=== PATIENT | male | born 1965 ===

== ENCOUNTER 2017-05-01 01:15 | Observation (INO) | payer MEDICAID, OTHER ==
--- NOTE | 2017-05-01 01:56 | C.PDOC ---
History Of Present Illness 51 year old male presents to the ED for evaluation of intermittent exertional chest pain and headache over the past week. Patient reports that pain has been occurring daily and lasts approximately an hour. Pain is exacerbated by walking and going up steps and is relieved by rest and water. Not exacerbated by deep breath. Patient endorses cough. Denies shortness of breath. Patient is noncompliant with medications for DM and HTN for the past 18 months due to homelessness. Chief Complaint (Nursing): Chest Pain History Per: Patient History/Exam Limitations: no limitations Onset/Duration Of Symptoms: Days, Intermittent Episodes Exacerbating Factors: Exertion Alleviating Factors: Rest, Other (water) Past Medical History Reviewed: Historical Data, Nursing Documentation, Vital Signs Vital Signs: Last Vital Signs Temp 97.5 F L 05/01/17 01:20 Pulse 78 05/01/17 03:49 Resp 18 05/01/17 03:49 BP 195/116 H 05/01/17 03:49 Pulse Ox 97 05/01/17 04:38 - Medical History PMH: Diabetes, HTN, Hypercholesterolemia Family History: States: Unknown Family Hx - Social History Hx Tobacco Use: Yes Hx Alcohol Use: Yes Hx Substance Use: No - Immunization History Hx Tetanus Toxoid Vaccination: No Hx Influenza Vaccination: No Hx Pneumococcal Vaccination: No Review Of Systems Except As Marked, All Systems Reviewed And Found Negative. Constitutional: Negative for: Fever, Chills ENT: Negative for: Ear Pain, Throat Pain Cardiovascular: Positive for: Chest Pain Respiratory: Positive for: Cough. Negative for: Shortness of Breath Gastrointestinal: Negative for: Nausea, Vomiting, Abdominal Pain, Diarrhea Skin: Negative for: Rash Neurological: Positive for: Headache Psych: Negative for: Withdrawal Physical Exam - Physical Exam Appears: Well, No Acute Distress Skin: Normal Color, Warm, Dry Head: Atraumatic, Normacephalic Eye(s): bilateral: Normal Inspection, PERRL, EOMI Oral Mucosa: Moist Tongue: Normal Appearing Lips: Normal Appearing Throat: Normal Neck: Normal, Normal ROM, Supple Cardiovascular: Rhythm Regular, Murmur (2/6 systolic murmur) Respiratory: Normal Breath Sounds Gastrointestinal/Abdominal: Soft, No Tenderness Back: Normal Inspection Extremity: Normal ROM, No Deformity Neurological/Psych: Oriented x3, Normal Speech ED Course And Treatment - Laboratory Results Result Diagrams: 05/01/17 02:45 05/01/17 02:45 ECG: Interpreted By Me ECG Rhythm: Sinus Rhythm ECG Interpretation: No Acute Changes Interpretation Of ECG: NSR,LVH otherwise neg O2 Sat by Pulse Oximetry: 97 Medical Decision Making Medical Decision Making: Pt with multiple risk factors including HTN and smoking now with exertional CP, relived by rest. Patient reevaluated. He is pain free at this time. Patient still with elevated BP at 202/117. Will admit for observation.Will admit for observation. Disposition - Disposition Disposition: HOSPITALIZED Disposition Time: 05:26 Condition: FAIR - Clinical Impression Clinical Impression: Chest pain - Scribe Statement The provider has reviewed the documentation as recorded by the Scribe The provider has reviewed the documentation as recorded by the Scribe (Prabhakar Cerna) Provider Attestation: All medical record entries made by the Scribe were at my direction and personally dictated by me. I have reviewed the chart and agree that the record accurately reflects my personal performance of the history, physical exam, medical decision making, and the department course for this patient. I have also personally directed, reviewed, and agree with the discharge instructions and disposition.
[2017-05-01 02:51] LABS: BASO # 0.1 K/uL (0.0-0.2); BASO % 0.8 % (0.0-2.0); EOS # 0.1 K/uL (0.0-0.7); EOS % 1.2 % (0.0-4.0); HEMOGLOBIN 15.6 g/dL (12.0-18.0); LYMPH # 1.3 K/uL (1.0-4.3); LYMPH % 16.5 % (20.0-40.0); MEAN CELL VOLUME 93.1 fL (80.0-94.0); MEAN CORPUSCULAR HEMOGLOBIN 31.6 pg (27.0-31.0); MEAN PLATELET VOLUME 8.5 fL (7.2-11.7); MONO # 0.7 K/uL (0.0-0.8); MONO % 8.8 % (0.0-10.0); NEUT # 5.7 K/uL (1.8-7.0); NEUT % 72.7 % (50.0-75.0); RBC 4.94 Mil/uL (4.40-5.90); RED CELL DISTRIBUTION WIDTH 13.8 % (11.5-14.5); WHITE BLOOD COUNT 7.8 K/uL (4.8-10.8)
[2017-05-01 02:53] LABS: INR 1.1; PROTHROMBIN TIME 11.8 SECONDS (9.7-12.2)
[2017-05-01 03:14] LABS: CALCIUM 8.9 mg/dl (8.6-10.4); GFR AFRICAN-AMERICAN > 60; GFR NON-AFRICAN AMERICAN > 60
[2017-05-01 03:19] LABS: ALB/GLOB RATIO 1.1 (1.0-2.1); ALBUMIN 4.7 g/dL (3.5-5.0); ALT/SGPT 16 U/L (21-72); AST/SGOT 55 U/L (17-59); BLOOD UREA NITROGEN 16 mg/dL (9-20)
[2017-05-01] MEDS ORDERED: Aspirin 325 mg EC Tablets PO STA (04:35)
[2017-05-01] MEDS ORDERED: Nitroglycerin 2% Ointment Foilpak UD TOP STA (04:38)
[2017-05-01] MEDS ORDERED: Aspirin 325 mg EC Tablets PO ONE (04:40)
[2017-05-01] MEDS ORDERED: Nitroglycerin 2% Ointment Foilpak UD TOP ONE (04:41)
--- NOTE | 2017-05-01 05:32 | CP.PCM.HP ---
<Yash Cross P - Last Filed: 05/01/17 06:31> Meds Allergies/Adverse Reactions: Allergies Allergy/AdvReac Type Severity Reaction Status Date / Time No Known Allergies Allergy Verified 05/01/17 01:22 Results - Vital Signs Recent Vital Signs: Last Vital Signs Temp 97.5 F L 05/01/17 01:20 Pulse 78 05/01/17 03:49 Resp 18 05/01/17 03:49 BP 195/116 H 05/01/17 03:49 Pulse Ox 97 05/01/17 05:26 - Labs Result Diagrams: 05/01/17 02:45 05/01/17 02:45 Labs: Laboratory Results - last 24 hr 05/01/17 05/01/17 05/01/17 02:45 02:45 02:45 WBC 7.8 RBC 4.94 Hgb 15.6 Hct 46.0 MCV 93.1 MCH 31.6 H MCHC 34.0 RDW 13.8 Plt Count 179 MPV 8.5 Neut % (Auto) 72.7 Lymph % (Auto) 16.5 L Moca % (Auto) 8.8 Eos % (Auto) 1.2 Baso % (Auto) 0.8 Neut # (Auto) 5.7 Lymph # (Auto) 1.3 Moca # (Auto) 0.7 Eos # (Auto) 0.1 Baso # (Auto) 0.1 PT 11.8 INR 1.1 Sodium 137 Potassium 4.4 Chloride 101 Carbon Dioxide 21 L Anion Gap 20 BUN 16 Creatinine 0.8 Est GFR ( Amer) > 60 Est GFR (Non-Af Amer) > 60 Random Glucose 98 Calcium 8.9 Total Bilirubin 1.8 H AST 55 ALT 16 L D Alkaline Phosphatase 61 Troponin I 0.0490 Total Protein 8.8 H Albumin 4.7 Globulin 4.1 H Albumin/Globulin Ratio 1.1 Alcohol, Quantitative 25 H Attending/Attestation - Attestation I have personally seen and examined this patient.: Yes I have fully participated in the care of the patient.: Yes I have reviewed all pertinent clinical information: Yes Notes (Text): Assessment * SOB CP on exertion, LVH on EKG, HTN noticed in ER with headache, systolic murmur radiating to carotid, DD of the presentation is either lvh is caused by chronic uncontrolled htn vs aortic disease, with bp being episodic, * Head ache could be exacerbating bp vs vice versa * Non compliance with meds for dm, htn * tobacco abuse, counselled Plan * Started on ACEI and betablocker, sent uds, * Echo, may need eval of coronaries inpatient vs out patient, cardio consult * Control of headache, zofran, fiorecet, avoid NSAIDS while starting new ACEI * Low dose asa * Enzymes, hgba1c * If bp doesn't improve significantly trial of diuretics * See orders for detail. <Tianna Marcelino - Last Filed: 05/01/17 07:03> History of Present Illness - History of Present Illness History of Present Illness: HPI: Patient is a 51 year old [place]kin[place] male with a past medical history of HTN, DM, and PTSD, who presents to the ED with complains of chest pain. Patient reports the chest pain started around 11:30pm while he was walking around [facility]. He describes the chest pain as a pressure, squeezing sensation, located parasternally and right side of chest. Patient states that for the last few weeks, he intermittently has chest pain while walking. The pain resolves after about a minute of walking. He also states that while he has the chest pain , he also feels as though its hard to breath (lasting for at most, 1 minute). He states his symptoms, especially his difficulty breathing, worsen when walking up hill. Patient admits to drinking 24oz of beer while he was walking and around the time he had chest pain. Patient currently complains of a headache , which he attributes to his high blood pressure, and a productive cough that he has had for 2-3 weeks. Patient currently denies fever, chills, weakness, vision changes, sore throat, dizziness, chest pain, palpitations, shortness of breath, abdominal pain, n/v, d/c, leg pain/swelling. PMD: none PMHx: HTN, DM, PTSD SurgHx: denies FamHx: Mother- ND, aneurysm; Father- stroke; Brother- aortic dissection SocHx: 1/2ppd x35+ years; drinks 24oz beer once a month; denies drug use; homeless for approximatley 1 year; unemployed. Allergies: NKDA Medications: none (previously took Lisinopril, statin, metformin, aspirin, and HCTZ; has not taken medications for 18 months] Present on Admission - Present on Admission Any Indicators Present on Admission: No Review of Systems - Constitutional Constitutional: Headache. absent: Chills, Fever, Weakness - EENT Eyes: absent: Change in Vision Ears: absent: Dizziness - Cardiovascular Cardiovascular: Chest Pain, Chest Pain with Activity, Dyspnea, Dyspnea on Exertion. absent: Chest Pain at Rest, Leg Edema, Lightheadedness, Palpitations , Radiating Pain, Rapid Heart Rate - Respiratory Respiratory: Cough, Dyspnea, Dyspnea on Exertion, Change in Mucous Color (yellow ) - Gastrointestinal Gastrointestinal: absent: Abdominal Pain, Constipation, Diarrhea, Hematemesis, Hematochezia, Nausea, Vomiting - Genitourinary Genitourinary: absent: Dysuria, Hematuria, Urinary Frequency - Integumentary Integumentary: absent: Rash - Neurological Neurological: Headaches. absent: Dizziness, Frequent Falls, Weakness - Psychiatric Psychiatric: Anxiety, Depression - Endocrine Endocrine: absent: Palpitations Past Patient History - Infectious Disease Hx of Infectious Diseases: None - Past Social History Smoking Status: Light Smoker < 10 Cigarettes Daily - CARDIAC Hx Hypercholesterolemia: Yes Hx Hypertension: Yes - ENDOCRINE/METABOLIC Hx Diabetes Mellitus Type 2: Yes - PSYCHIATRIC Hx Substance Use: No - SURGICAL HISTORY Hx Surgeries: No - ANESTHESIA Hx Anesthesia: No Physical Exam - Constitutional Additional comments: Appears anxious - Head Exam Head Exam: ATRAUMATIC, NORMAL INSPECTION - Eye Exam Eye Exam: EOMI, Normal appearance, PERRL - ENT Exam ENT Exam: Mucous Membranes Moist - Respiratory Exam Respiratory Exam: Clear to Auscultation Bilateral, NORMAL BREATHING PATTERN. absent: Rales, Rhonchi, Wheezes, Respiratory Distress - Cardiovascular Exam Cardiovascular Exam: +S1, +S2, Systolic Murmur - GI/Abdominal Exam GI & Abdominal Exam: Normal Bowel Sounds, Soft. absent: Distended, Firm, Tenderness - Extremities Exam Extremities exam: Positive for: normal inspection, pedal pulses present. Negative for: pedal edema, tenderness - Neurological Exam Neurological exam: Alert, Oriented x3 - Psychiatric Exam Psychiatric exam: Anxious - Skin Skin Exam: Dry, Intact, Normal Color, Warm Results - Vital Signs Recent Vital Signs: Last Vital Signs Temp 97.5 F L 05/01/17 01:20 Pulse 78 05/01/17 03:49 Resp 18 05/01/17 03:49 BP 195/116 H 05/01/17 03:49 Pulse Ox 97 05/01/17 05:26 - Labs Result Diagrams: 05/01/17 02:45 05/01/17 02:45 Labs: Laboratory Results - last 24 hr 05/01/17 05/01/17 05/01/17 02:45 02:45 02:45 WBC 7.8 RBC 4.94 Hgb 15.6 Hct 46.0 MCV 93.1 MCH 31.6 H MCHC 34.0 RDW 13.8 Plt Count 179 MPV 8.5 Neut % (Auto) 72.7 Lymph % (Auto) 16.5 L Moca % (Auto) 8.8 Eos % (Auto) 1.2 Baso % (Auto) 0.8 Neut # (Auto) 5.7 Lymph # (Auto) 1.3 Moca # (Auto) 0.7 Eos # (Auto) 0.1 Baso # (Auto) 0.1 PT 11.8 INR 1.1 Sodium 137 Potassium 4.4 Chloride 101 Carbon Dioxide 21 L Anion Gap 20 BUN 16 Creatinine 0.8 Est GFR ( Amer) > 60 Est GFR (Non-Af Amer) > 60 Random Glucose 98 Calcium 8.9 Total Bilirubin 1.8 H AST 55 ALT 16 L D Alkaline Phosphatase 61 Troponin I 0.0490 Total Protein 8.8 H Albumin 4.7 Globulin 4.1 H Albumin/Globulin Ratio 1.1 Alcohol, Quantitative 25 H Assessment & Plan (1) Chest pain Assessment and Plan: Intermittent Chest pain with exertion In the ED, patient given Lisinopril 10mg PO, Nitropaste 2%, and Asa 325mg PO once. Cardiology consulted, Dr. Judge, help appreciated Troponin x1: negative EKG: nsr, LVH Troponin x2: f/u results EKGx2 f/u results Chest xray: f/u results UDS: f/u results Echo: f/u results TSH/T4: f/u results A1c: f/u results Lipid panel: f/u results Monitor on telemetry Status: Acute (2) Dyspnea on exertion Assessment and Plan: Chest xray: f/u results Echo: f/u results O2 via nasal cannula prn Status: Acute (3) HTN (hypertension) Assessment and Plan: Hypertensive Urgency; Hx of HTN, patient not taking medication In the ED, patient given lisinopril 10mg PO once, Hydralazine 10mg IV once. EKG: NSR, LVH Will start coreg 6.25mg PO BID (as long as UDS negative for cocaine) Continue to monitor. Heart Health Diet, 2Na Status: Acute (4) Diabetes mellitus Assessment and Plan: Patient not taking medications at this time (18 months); Previously took Metformin 1000mg PO daily Monitor blood glucose, accuchecks A1c: f/u Will consider adding medication following results of A1c, blood glucose, accuchekcs. Status: Acute (5) Prophylactic measure Assessment and Plan: DVT: Heparin 5000 sc Q8, SCDs GI: Protonix 40mg PO daily Heart Healthy Diet, 2Na Status: Acute
[2017-05-01] MEDS ORDERED: Enalaprilat 2.5 MG/2 ML IV ONE (05:52)
[2017-05-01] MEDS ORDERED: Apap-Butalbital-Caffeine 325-50-40mg Tab PO STA (06:00)
[2017-05-01] MEDS ORDERED: Apap-Butalbital-Caffeine 325-50-40mg Tab ONE (06:22)
[2017-05-01 08:35] LABS: HDL CHOLESTEROL 41 mg/dL (30-70)
--- NOTE | 2017-05-01 08:38 | RAD ---
PROCEDURE: CHEST RADIOGRAPH, 1 VIEW HISTORY: chest pain COMPARISON: 06/10/2014 FINDINGS: LUNGS: No consolidation. PLEURA: No pneumothorax or pleural fluid seen. CARDIOVASCULAR: Cardiomegaly. Pulmonary venous congestion OSSEOUS STRUCTURES: No significant abnormalities. VISUALIZED UPPER ABDOMEN: Normal. OTHER FINDINGS: None. IMPRESSION: Cardiomegaly and mild pulmonary venous congestion
[2017-05-01 08:45] LABS: LDL CHOLESTEROL 150 mg/dL (0-129)
[2017-05-01 08:52] LABS: T4 12.2 ug/dL (5.5-11.0)
[2017-05-01 09:03] LABS: CK-MB 3.28 ng/mL (0.0-3.38); TROPONIN I 0.041 ng/mL (0.00-0.120)
[2017-05-01] MEDS: Pantoprazole 40 mg EC Tab PO SCH (11:50)
--- NOTE | 2017-05-01 12:56 | CARD ---
APPROVED REPORT EXAM: Two-dimensional and M-mode echocardiogram with Doppler and color Doppler. Other Information Quality : GoodRhythm : INDICATION Dizziness and Vertigo Chest Pain RISK FACTORS Hypertension Diabetes 2D DIMENSIONS IVSd1.5 (0.7-1.1cm)LVDd4.5 (3.9-5.9cm) LVOT Diameter2.0 (1.8-2.4cm)PWd1.5 (0.7-1.1cm) LVDs3.6 (2.5-4.0cm)FS (%) 21.7 % LVEF (%)44.1 (>50%) M-Mode DIMENSIONS RVDd2.88 (2.1-3.2cm)Left Atrium (MM)5.59 (2.5-4.0cm) IVSd1.74 (0.7-1.1cm)Aortic Root3.16 (2.2-3.7cm) LVDd5.28 (4.0-5.6cm)Aortic Cusp Exc.2.07 (1.5-2.0cm) PWd1.18 (0.7-1.1cm)FS (%) 18 % LVDs4.30 (2.0-3.8cm) Aortic Valve AoV Peak Ygcjilat091.7cm/sAoV VTI48.2cmAO Peak GR.24mmHg LVOT Peak Lfxorogk196.5cm/sLVOT VTI22.73cmAO Mean GR.15mmHg TEN (VMAX)1.81ou5NSM (VTI)1.70ol6LX P 1/2 Dret539db Mitral Valve MV E Punjqyhm308.5cm/sMV A Ekgafprj855.2cm/sE/A ratio0.8 TDI E/Lateral E'0.0E/Medial E'0.0 Tricuspid Valve TR Peak Iwtpbsct129xv/sTR Peak Gr.77bbEwXVEU81chXj LEFT VENTRICLE The left ventricle is normal size. There is mild to moderate concentric left ventricular hypertrophy. Left ventricle systolic function is normal. The Ejection Fraction is 60-65%. There is normal LV segmental wall motion. Transmitral Doppler flow pattern is Grade I-abnormal relaxation pattern. There is no ventricular septal defect visualized. RIGHT VENTRICLE The right ventricle is normal size. The right ventricular systolic function is normal. ATRIA The left atrium is moderately dilated. The right atrium size is normal. AORTIC VALVE The aortic valve is mildly sclerotic. The aortic valve is tri-cuspid. There is mild aortic regurgitation. There is mild valvular aortic stenosis. Calculated aortic valve area is 1.3 cm2 with maximum pressure gradient of 28 mmHg MITRAL VALVE Mitral annular calcification is mild. There is no evidence of mitral valve prolapse. Mitral regurgitation is mild. TRICUSPID VALVE The tricuspid valve is normal in structure. There is mild tricuspid regurgitation. Right ventricular systolic pressure is estimated at 50-60 mmHg. There is moderate-severe pulmonary hypertension. PULMONIC VALVE The pulmonary valve is normal in structure. There is trace pulmonic valvular regurgitation. GREAT VESSELS The aortic root is normal in size. The ascending aorta is normal in size. The IVC is normal in size and collapses >50% with inspiration. PERICARDIAL EFFUSION There is no pericardial effusion. <Conclusion> There is mild to moderate concentric left ventricular hypertrophy. Left ventricle systolic function is normal. The Ejection Fraction is 60-65%. Transmitral Doppler flow pattern is Grade I-abnormal relaxation pattern. There is mild aortic regurgitation. There is mild valvular aortic stenosis. Mitral regurgitation is mild. There is moderate-severe pulmonary hypertension.
[2017-05-01 13:41] VITALS: RESP 20
--- NOTE | 2017-05-01 13:47 | CP.PCM.PN ---
<Noelle Laboy - Last Filed: 05/01/17 14:08> Subjective - Date & Time of Evaluation Date of Evaluation: 05/01/17 Time of Evaluation: 07:30 - Subjective Subjective: Patient seen and examined at bedside. Patient resting comfortably in bed with no new complaints. Patient says the chest pain has mildly improved. Patient admits to having some beer last night but says he only drinks once or twice a month. Patient does admit to methamphetamine use in the past but says he has not used it in about a month or two. This was denied on admission in his original history. Patient denies SOB, palpitations, dizziness, abdominal pain, N &V, diarrhea, constipation, leg pain, and leg swelling. Objective - Vital Signs/Intake and Output Vital Signs (last 24 hours): Temp Pulse Resp BP Pulse Ox 98.1 F 75 14 171/74 H 97 05/01/17 11:12 05/01/17 11:12 05/01/17 11:12 05/01/17 11:12 05/01/17 11:12 Intake and Output: 05/01/17 05/01/17 06:59 18:59 Intake Total 480 Output Total 1000 Balance -520 - Medications Medications: Current Medications Acetaminophen (Tylenol 325mg Tab) 650 mg PO Q6 PRN PRN Reason: Pain, Mild (1-3) Aspirin (Aspirin Chewable) 81 mg PO DAILY PENDING SALE TO [facility] Carvedilol (Coreg) 6.25 mg PO BID PENDING SALE TO [facility] Last Admin: 05/01/17 11:49 Dose: 6.25 mg Folic Acid (Folic Acid) 1 mg PO DAILY PENDING S[facility] Last Admin: 05/01/17 11:49 Dose: 1 mg Heparin Sodium (Porcine) (Heparin) 5,000 units SC Q8 PENDING SALE TO [facility] Last Admin: 05/01/17 06:24 Dose: 5,000 units Lisinopril (Zestril) 10 mg PO DAILY [facility] Last Admin: 05/01/17 11:50 Dose: 10 mg Nicotine (Nicoderm Cq) 1 patch TD DAILY PEND[facility] Last Admin: 05/01/17 11:50 Dose: Not Given Pantoprazole Sodium (Protonix Ec Tab) 40 mg PO DAILY [facility] Last Admin: 05/01/17 11:50 Dose: 40 mg Rosuvastatin Calcium (Crestor) 5 mg PO HS [facility]ENDING SALE [facility] Thiamine HCl (Vitamin B1 Tab) 100 mg PO DAILY PEND[facility] SALE [facility] Last Admin: 05/01/17 11:50 Dose: 100 mg - Labs Labs: 05/01/17 02:45 05/01/17 02:45 PT 11.8 SECONDS (9.7-12.2) 05/01/17 02:45 INR 1.1 05/01/17 02:45 - Constitutional Appears: Non-toxic, No Acute Distress - Head Exam Head Exam: ATRAUMATIC, NORMAL INSPECTION - Eye Exam Eye Exam: EOMI, Normal appearance, PERRL - ENT Exam ENT Exam: Mucous Membranes Moist - Respiratory Exam Respiratory Exam: Clear to Ausculation Bilateral, NORMAL BREATHING PATTERN. absent: Accessory Muscle Use, Rales, Rhonchi, Wheezes, Respiratory Distress - Cardiovascular Exam Cardiovascular Exam: RRR, +S1, +S2 - GI/Abdominal Exam GI & Abdominal Exam: Soft, Normal Bowel Sounds. absent: Distended, Tenderness - Extremities Exam Extremities Exam: Normal Inspection. absent: Calf Tenderness, Pedal Edema - Neurological Exam Neurological Exam: Alert, Awake, Oriented x3 - Psychiatric Exam Psychiatric exam: Anxious - Skin Skin Exam: Dry, Intact, Normal Color, Warm Assessment and Plan - Assessment and Plan (Free Text) Plan: (1) Chest pain/SOB on exertion * Cardiology consulted, Dr. Judge, help appreciated * Troponin: 0.0490, 0.0410 * EKG: nsr, LVH * Chest xray: cardiomegaly and pulmonary venous congestion * BNP: 3320 * 05/01: gave lasix 20 mg IV once * Echo: pending * Lipid panel: Trig 153, Chol 199, LDL 150, HDL 41 * Monitor on telemetry * O2 via nasal cannula prn Meds: * Crestor 5 mg * Lisinopril 10 mg * ASA 81 mg * Coreg 6.25 mg BID * In the ED, patient given Lisinopril 10mg PO, Nitropaste 2%, and Asa 325mg PO once Hyperthyroid * TSH/T4: 0.39/12.2 * Endocrine consult, Dr. Hodges; help appreciated * Methimazole 15 mg PO Q8h * Thyroglobulin Ab pending * Thyroid peroxidase Ab pending Hypertensive urgency * Patient noncompliant with home medication, possible thyroid component * EKG: NSR, LVH * Continue to monitor * Heart Health Diet, 2Na Meds * In the ED, patient given lisinopril 10mg PO once, Hydralazine 10mg IV once * coreg 6.25mg PO BID (continue as long as UDS negative for cocaine) History of substance abuse * UDS: pending * Alcohol: 25 Diabetes mellitus * Previously took Metformin 1000mg PO daily but has not taken in 18 months * Monitor blood glucose with accuchecks * A1c: 5.8 Prophylactic measure DVT: Heparin 5000 sc Q8, SCDs GI: Protonix 40mg PO daily Heart Healthy Diet, 2Na <Homero Kumar - Last Filed: 05/01/17 19:44> Objective - Vital Signs/Intake and Output Vital Signs (last 24 hours): Temp Pulse Resp BP Pulse Ox 97.9 F 61 20 162/87 H 95 05/01/17 15:35 05/01/17 15:35 05/01/17 15:35 05/01/17 19:23 05/01/17 15:35 - Medications Medications: Current Medications Acetaminophen (Tylenol 325mg Tab) 650 mg PO Q6 PRN PRN Reason: Pain, Mild (1-3) Aspirin (Aspirin Chewable) 81 mg PO DAILY PEND[facility] SALE TO [facility] Carvedilol (Coreg) 6.25 mg PO BID PENDING SALE TO [facility] Last Admin: 05/01/17 19:05 Dose: 6.25 mg Folic Acid (Folic Acid) 1 mg PO DAILY [facility]END[facility] Last Admin: 05/01/17 11:49 Dose: 1 mg Heparin Sodium (Porcine) (Heparin) 5,000 units SC Q8 PENDING S[facility] Last Admin: 05/01/17 19:05 Dose: 5,000 units Lisinopril (Zestril) 10 mg PO DAILY [facility] Last Admin: 05/01/17 11:50 Dose: 10 mg Methimazole (Tapazole) 5 mg PO BID PENDING SALE [facility] Nicotine (Nicoderm Cq) 1 patch TD DAILY PENDING S[facility] Last Admin: 05/01/17 11:50 Dose: Not Given Pantoprazole Sodium (Protonix Ec Tab) 40 mg PO DAILY [facility] Last Admin: 05/01/17 11:50 Dose: 40 mg Rosuvastatin Calcium (Crestor) 5 mg PO [facility] Thiamine HCl (Vitamin B1 Tab) 100 mg PO DAILY PEND[facility] Last Admin: 05/01/17 11:50 Dose: 100 mg - Labs Labs: 05/01/17 02:45 05/01/17 02:45 PT 11.8 SECONDS (9.7-12.2) 05/01/17 02:45 INR 1.1 05/01/17 02:45 Attending/Attestation - Attestation I have personally seen and examined this patient.: Yes I have fully participated in the care of the patient.: Yes I have reviewed all pertinent clinical information, including history, physical exam and plan: Yes Notes (Text): 05/01/17 19:42 Patient was seen and examined in the ER Bed #1 at 8:30 AM Exam, assessment and plan were thoroughly gone over with the resident. Homero Kumar D.O.
[2017-05-01] MEDS ORDERED: methIMAzole 5 MG TAB PO SCH (15:15)
[2017-05-01] MEDS ORDERED: Ipratropium 0.02% Inhal Soln (0.5 mg/2.5 ml) UD IH STA (15:45)
[2017-05-01 22:40] LABS: CK-MB 3.22 ng/mL (0.0-3.38)
[2017-05-01 22:44] LABS: TROPONIN I 0.043 ng/mL (0.00-0.120)
--- NOTE | 2017-05-02 06:02 | CON ---
DATE: CARDIOLOGY CONSULT LOCATION: Room 560, bed B. HISTORY OF PRESENT ILLNESS: Requested to see this 51-year-old [place] male with a long history of hypertension. He has stopped taking the medications sometime back since he ran out of insurance and told me that he was out of the state and now he has no job. Came to the emergency room with increasing shortness of breath with mild exertion. This progressively got worse over the last several days. On arrival to the emergency room, he appeared to have vitals stable. However, due to the past history and the presentation, he was on cardiac admission to take care of his heart failure. As mentioned above, he has a long history of hypertension for which he was taking lisinopril 40 mg, hydrochlorothiazide 25 as well as statin for several years. SOCIAL HISTORY: He smokes several cigarettes a day and he drinks beer occasionally. Actually, he was drinking over the last few days according to what he told me. ALLERGIES: HE DENIES ANY ALLERGIES. On arrival to the emergency room, his blood pressure was significantly elevated with blood pressure in the range of about 190/110. The latest one around 3'o clock this afternoon is around 162/87. He is afebrile, respiratory rate remarkable at rest. REVIEW OF SYSTEMS: He denies to me any chest pain, whatsoever. His main complaint is shortness of breath on exertion, Rice Classification II. Rest of the review of systems is negative. PHYSICAL EXAMINATION: GENERAL: Alert and oriented, appears relatively intelligent, is speaking quiet well, in no acute distress. Right now, he feels much better. LATEST VITAL SIGNS: As I mentioned above with blood pressure of 162/87. Continuous cardiac monitoring showing sinus rhythm. No significant ectopy. Respiratory rate in room air is normal. SKIN: Warm and dry. No dependent edema. HEAD, EARS, EYES, NOSE, AND THROAT: Basically unremarkable. NECK: Supple. Jugular veins not distended. LUNGS: Lung shrestha clear to auscultation. CARDIOLOGIC: Precordium shows no deformity or thrills. PMI appears displaced down now. Heart sounds regular and normal in intensity with a systolic murmur, around 2 to 3 in the left sternal border which radiated to the neck. There is, perhaps, a little faint systolic murmur, but cannot be certain even though he was holding his breathing. ABDOMEN: Grossly unremarkable. EXTREMITIES: Locomotor is intact. CENTRAL NERVOUS SYSTEM: Intact. COMPLEMENTARY DATA: From the cardiological view point, an initial troponin negative, but the BNP is significantly elevated at 3300. Chest x-ray shows cardiomegaly, some pulmonary congestion. EKG is showing sinus rhythm. Left ventricular hypertrophy with repolarization abnormality. Echocardiogram that I reviewed personally showing some additional, perhaps, [id number] concentric right ventricular hypertrophy with normal preserved systolic function. There is however significant diastolic dysfunction with significantly elevated left atrial pressure. In the patient, there is aortic sclerosis. The aortic valve shows [id number] sclerosis, borderline to mildly decreased systolic excursion. There is also concomitantly mild aortic insufficiency. The peak systolic velocity across the aortic valve is mildly elevated at about 2.25 to 2.5 consistent with borderline aortic sclerosis to mild aortic stenosis. Rest of the complementary data: Significantly elevated lipids with LDL about 150, TSH about 0.39, and T4 slightly elevated. The internal medicine department is looking into that. On arrival here, his alcohol was elevated in the toxicology report. Renal function is normal. CBC is also normal. IMPRESSION: 1. Hypertensive heart disease with mainly diastolic heart failure or reserve systolic function heart failure. 2. Atherosclerotic cardiovascular disease. 3. Aortic sclerosis to borderline aortic stenosis with mild aortic regurgitation. SUGGESTION: Presently, he is totally appears improving. The way to go is with taking care of the hypertensive cardiovascular disease, the way that you are doing right now with AINSLEY inhibitors, beta-blockers, diuretics. Obviously, he has to stop smoking and the lipids have to be addressed. If he remains stable, perhaps, he could be discharged tomorrow and refer to his clinic for further evaluation and followup. At this point in time, no need for further investigations from the cardiologic view point. This could be done as an outpatient. Kwadwo Judge MD
[2017-05-02] MEDS ORDERED: methIMAzole 5 MG TAB PO SCH (10:00)
[2017-05-02] MEDS: Pantoprazole 40 mg EC Tab PO SCH (10:23)
--- NOTE | 2017-05-02 10:27 | CON ---
DATE: 05/01/2017. ENDOCRINOLOGY CONSULT LOCATION: Room 560. HISTORY OF PRESENT ILLNESS: This is 51-year-old male presenting here with sudden onset of precordial chest pain and concomitant palpitations with supervening sinus tachycardia and is now being referred for endocrine evaluation of early hyperthyroidism. PAST MEDICAL HISTORY: History of type 2 diabetes, hypertension, currently off medications at this time. FAMILY HISTORY: Positive for diabetes and hypertension. SOCIAL HISTORY: The patient is currently homeless at this time and admits to cigarette smoking of half pack a day for some years now. REVIEW OF SYSTEMS: As mentioned above, admits to episodic bouts of dizziness and lightheadedness, worse on the day of admission, also admits to bifrontal headaches with easy fatigability and tiredness with suboptimal energy level, admits to recent insomnia worse in the last few weeks prior to admission. As mentioned above, admits to sudden onset of precordial chest pain with palpitations and progressive shortness of breath especially on exertion. His oral intake has been variable with nausea, dyspepsia and hyperdefecation. PHYSICAL EXAMINATION: GENERAL: This is an average-built male, in no apparent distress. VITAL SIGNS: Blood pressure of 140/80, pulse of 70 beats per minute and regular, temperature 98, respirations 20. Height is 5 feet 8 inches. Weight is 190 pounds. HEENT: Head is normocephalic. Eyes anicteric with pink conjunctivae. Funduscopy not possible at this time. Ears, nose, and throat, otherwise normal. NECK: Supple. Thyroid gland is normal in size. No carotid bruits or cervical adenopathy. CARDIOPULMONARY: Some adynamic precordium. S1 and S2 is rapid and regular. LUNGS: Clear to auscultation. ABDOMEN: Flat, soft with positive bowel sounds. EXTREMITIES: No peripheral edema. Pulses are +2 bilaterally. LABORATORY DATA: His chemistry shows a BUN of 16, sodium 137, potassium 4.4, chloride 101, CO2 21, glucose 98, and creatinine 0.8. His hemoglobin A1c is 5.8%. The proBNP is 3320. The total T4 is 12.2 with a TSH of 0.39. ASSESSMENT: This is 51-year-old male with early hyperthyroidism noted historically, clinically and biochemically, most likely related to underlying autoimmune thyroiditis. No overt orbitopathy noted at this time nor any overt possible thyroid nodules otherwise. PLAN OF MANAGEMENT: We will prudently start him on a much lower dosing of the medical therapy with thiourea's - low dose of 5 mg b.i.d. and will titrate and correct as indicated to optimize metabolic control and also depend on the clinical and biochemical response thereafter. We will obtain thyroid antibiotics as they have been also ordered and we will add a thyroid stimulating immunoglobulin or a TSH receptor antibody which ever is available in our lab to confirm and/or negate the presence of underlying thyroid autoimmunity. We will obtain serum chemistries and supplement accordingly as needed. We will also recommend beta adrenergic blockade at this time. We will follow. Haylee Hodges MD
--- NOTE | 2017-05-02 10:38 | CP.PCM.DIS ---
<Tammy Chaney E - Last Filed: 05/02/17 11:50> Provider - Provider Date of Admission: 05/01/17 04:55 Attending physician: Yash Cross MD Time Spent in preparation of Discharge (in minutes): 35 Hospital Course - Lab Results Lab Results: Most Recent Lab Values WBC 7.8 K/uL (4.8-10.8) 05/01/17 02:45 RBC 4.94 Mil/uL (4.40-5.90) 05/01/17 02:45 Hgb 15.6 g/dL (12.0-18.0) 05/01/17 02:45 Hct 46.0 % (35.0-51.0) 05/01/17 02:45 MCV 93.1 fL (80.0-94.0) 05/01/17 02:45 MCH 31.6 pg (27.0-31.0) H 05/01/17 02:45 MCHC 34.0 g/dL (33.0-37.0) 05/01/17 02:45 RDW 13.8 % (11.5-14.5) 05/01/17 02:45 Plt Count 179 K/uL (130-400) 05/01/17 02:45 MPV 8.5 fL (7.2-11.7) 05/01/17 02:45 Neut % (Auto) 72.7 % (50.0-75.0) 05/01/17 02:45 Lymph % (Auto) 16.5 % (20.0-40.0) L 05/01/17 02:45 Mayes % (Auto) 8.8 % (0.0-10.0) 05/01/17 02:45 Eos % (Auto) 1.2 % (0.0-4.0) 05/01/17 02:45 Baso % (Auto) 0.8 % (0.0-2.0) 05/01/17 02:45 Neut # (Auto) 5.7 K/uL (1.8-7.0) 05/01/17 02:45 Lymph # (Auto) 1.3 K/uL (1.0-4.3) 05/01/17 02:45 Mayes # (Auto) 0.7 K/uL (0.0-0.8) 05/01/17 02:45 Eos # (Auto) 0.1 K/uL (0.0-0.7) 05/01/17 02:45 Baso # (Auto) 0.1 K/uL (0.0-0.2) 05/01/17 02:45 PT 11.8 SECONDS (9.7-12.2) 05/01/17 02:45 INR 1.1 05/01/17 02:45 Sodium 137 mmol/L (132-148) 05/01/17 02:45 Potassium 4.4 mmol/L (3.6-5.2) 05/01/17 02:45 Chloride 101 mmol/L (98-107) 05/01/17 02:45 Carbon Dioxide 21 mmol/L (22-30) L 05/01/17 02:45 Anion Gap 20 (10-20) 05/01/17 02:45 BUN 16 mg/dL (9-20) 05/01/17 02:45 Creatinine 0.8 mg/dL (0.8-1.5) 05/01/17 02:45 Est GFR ( Amer) > 60 05/01/17 02:45 Est GFR (Non-Af Amer) > 60 05/01/17 02:45 Random Glucose 98 mg/dL (75-110) 05/01/17 02:45 Hemoglobin A1c 5.8 % (4.2-6.5) 05/01/17 07:30 Calcium 8.9 mg/dl (8.6-10.4) 05/01/17 02:45 Total Bilirubin 1.8 mg/dL (0.2-1.3) H 05/01/17 02:45 AST 55 U/L (17-59) 05/01/17 02:45 ALT 16 U/L (21-72) L D 05/01/17 02:45 Alkaline Phosphatase 61 U/L (38-126) 05/01/17 02:45 Total Creatine Kinase 235 U/L (55-170) H 05/01/17 22:17 CK-MB (Mass) 3.22 ng/mL (0.0-3.38) 05/01/17 22:17 Troponin I 0.0430 ng/mL (0.00-0.120) 05/01/17 22:17 NT-Pro-B Natriuret Pep 3320 pg/mL (0-900) H 05/01/17 08:28 Total Protein 8.8 g/dL (6.3-8.3) H 05/01/17 02:45 Albumin 4.7 g/dL (3.5-5.0) 05/01/17 02:45 Globulin 4.1 gm/dL (2.2-3.9) H 05/01/17 02:45 Albumin/Globulin Ratio 1.1 (1.0-2.1) 05/01/17 02:45 Triglycerides 153 mg/dL (0-149) H 05/01/17 02:45 Cholesterol 199 mg/dL (0-199) 05/01/17 02:45 LDL Cholesterol Direct 150 mg/dL (0-129) H 05/01/17 02:45 HDL Cholesterol 41 mg/dL (30-70) 05/01/17 02:45 Thyroxine (T4) 12.2 ug/dL (5.5-11.0) H 05/01/17 02:45 TSH 3rd Generation 0.39 mIU/L (0.46-4.68) L 05/01/17 02:45 Alcohol, Quantitative 25 mg/dl (0-10) H 05/01/17 02:45 - Hospital Course Hospital Course: HPI (As per admission): Patient is a 51 year old [place] male with a past medical history of HTN, DM, and PTSD, who presents to the ED with complains of chest pain. Patient reports the chest pain started around 11:30pm while he was walking around [facility]. He describes the chest pain as a pressure, squeezing sensation, located parasternally and right side of chest. Patient states that for the last few weeks, he intermittently has chest pain while walking. The pain resolves after about a minute of walking. He also states that while he has the chest pain, he also feels as though its hard to breath (lasting for at most, 1 minute). He states his symptoms, especially his difficulty breathing, worsen when walking up hill. Patient admits to drinking 24oz of beer while he was walking and around the time he had chest pain. Patient currently complains of a headache, which he attributes to his high blood pressure, and a productive cough that he has had for 2-3 weeks. Patient currently denies fever, chills, weakness, vision changes, sore throat, dizziness, chest pain, palpitations, shortness of breath, abdominal pain, n/v, d/c, leg pain/swelling. Hospital Course: Patient was admitted with the consideration of chest pain and Shortness of breath, R/O ACS. Flag Signalman, Dr. Judge was consulted, who reports that patient symptoms is secondary to hypertensive heart disease with mainly diastolic heart failure or reserve systolic function heart failure with recommendation to continue ACEi, beta-paulette and Diuretics and outpatient follow up. Endocrinology, Dr. Hodges was consulted for noted elevated free T4 and low TSH, who recommended for patient to be discharged on methimazole 10mg PO daily. Patient remained clinically stable over the course of admission and had no acute issues. Patient's symptoms improved significantly over the course of admission. Patient was cleared prior to discharge and discharge with appropriate medications and instructions. Prior to discharge, patient was educated on smoking cessation by his nurse and social services aide will provide him with care home location. Pertinent Imaging/ Labs: 1.Echocardiogram: There is mild to moderate concentric left ventricular hypertrophy. Left ventricle systolic function is normal. EF (60-68%). There is mild Aortic regurgitation and valvular aortic stenosis and moderate-severe pulmonary hypertension. 2.Chest X-ray (04/28/17): Cardiomegaly and mild pulmonary venous congestion 3.EKG: NSR, LVH 4.Troponins negative X 3 5. TSH: 0.39, T4: 12.2 6. HgbA1C: 5.8 Coreg 6.125mg PO BID switched to coreg 3.125mg PO BID due to asymptomatic low HR noted on Tele prior to discharge. This is a brief summary of events. For a complete course, please refer to the medical records. Discharge Exam - Head Exam Head Exam: ATRAUMATIC, NORMAL INSPECTION - Eye Exam Eye Exam: EOMI, Normal appearance - ENT Exam ENT Exam: Mucous Membranes Moist - Respiratory Exam Respiratory Exam: Clear to PA & Lateral, NORMAL BREATHING PATTERN. absent: Wheezes, Respiratory Distress - Cardiovascular Exam Cardiovascular Exam: REGULAR RHYTHM, +S1, +S2 - GI/Abdominal Exam GI & Abdominal Exam: Normal Bowel Sounds, Soft. absent: Diminished Bowel Sounds , Distended, Firm, Guarding, Tenderness - Extremities Exam Extremities exam: normal inspection - Neurological Exam Neurological exam: Alert, Oriented x3 - Psychiatric Exam Psychiatric exam: Normal Affect - Skin Skin Exam: Normal Color Discharge Plan - Discharge Medications Prescriptions: Aspirin [Aspirin Chewable] 81 mg PO DAILY 30 Days #30 chew Atorvastatin [Lipitor] 10 mg PO HS 30 Days #30 tab Carvedilol [Coreg] 3.125 mg PO BID 30 Days #60 tab Carvedilol [Coreg] 6.25 mg PO BID 30 Days #60 tab Lisinopril [Zestril] 10 mg PO DAILY 30 Days #30 tab metFORMIN [glucOPHAGE] 500 mg PO DAILY 30 Days #30 tab methIMAzole [Tapazole] 10 mg PO DAILY 30 Days #30 tab - Follow Up Plan Condition: FAIR Disposition: HOME/ ROUTINE Instructions: Hyperthyroidism (Overactive Thyroid), Type 2 Diabetes, Chest Pain , Aspirin, Atorvastatin, Carvedilol, Lisinopril, Metformin, Methimazole Additional Instructions: Please discharge patient as he is medically stable Please start/continue the following medications: 1. Methimazole 10mg PO daily, please take at 1 tablet once a day at breakfast time 2. Coreg 3.125mg PO BID, please take 2 tables daily; one at breakfast time and one at dinner time 3. Lisinopril 10mg PO daily, please take at 1 tablet once a day at breakfast time 4. ASA 81mg PO daily, please take at 1 tablet once a day at breakfast time 5. Lipitor 10mg PO daily at dinner time 6. Metformin 500mg PO once daily, please take at 1 tablet once a day at breakfast time Please follow up at [facility], in order to establish care Please follow up with the [facility], for a "repeat TSH" and "Free T4" (thyriod lab studies) labs in 4-6 weeks Please follow up your pending thyroid studies test by calling the hospital Please follow-up with [facility], Dr. Judge or [facility], to establish cardiac care Please return to the hospital if symptoms resumes such as chest pain, SOB, palpitations, fever, chills, nausea, vomiting, diaphoresis, dizziness and syncope Please take care Referrals: [facility] [Provider Group] Haylee Hodges MD [Medical Doctor] - Kwadwo Judge MD [Staff Provider] - <Homero Kumar - Last Filed: 05/02/17 17:15> Provider - Provider Date of Admission: 05/01/17 04:55 Attending physician: Yash Cross MD Hospital Course - Lab Results Lab Results: Most Recent Lab Values WBC 5.8 K/uL (4.8-10.8) 05/02/17 11:12 RBC 4.83 Mil/uL (4.40-5.90) 05/02/17 11:12 Hgb 15.5 g/dL (12.0-18.0) 05/02/17 11:12 Hct 45.2 % (35.0-51.0) 05/02/17 11:12 MCV 93.4 fL (80.0-94.0) 05/02/17 11:12 MCH 32.2 pg (27.0-31.0) H 05/02/17 11:12 MCHC 34.4 g/dL (33.0-37.0) 05/02/17 11:12 RDW 14.2 % (11.5-14.5) 05/02/17 11:12 Plt Count 193 K/uL (130-400) 05/02/17 11:12 MPV 8.4 fL (7.2-11.7) 05/02/17 11:12 Neut % (Auto) 53.2 % (50.0-75.0) 05/02/17 11:12 Lymph % (Auto) 24.2 % (20.0-40.0) 05/02/17 11:12 Mayes % (Auto) 10.5 % (0.0-10.0) H 05/02/17 11:12 Eos % (Auto) 11.3 % (0.0-4.0) H 05/02/17 11:12 Baso % (Auto) 0.8 % (0.0-2.0) 05/02/17 11:12 Neut # (Auto) 3.1 K/uL (1.8-7.0) 05/02/17 11:12 Lymph # (Auto) 1.4 K/uL (1.0-4.3) 05/02/17 11:12 Mayes # (Auto) 0.6 K/uL (0.0-0.8) 05/02/17 11:12 Eos # (Auto) 0.7 K/uL (0.0-0.7) 05/02/17 11:12 Baso # (Auto) 0.0 K/uL (0.0-0.2) 05/02/17 11:12 PT 11.8 SECONDS (9.7-12.2) 05/01/17 02:45 INR 1.1 05/01/17 02:45 Sodium 137 mmol/L (132-148) 05/02/17 11:12 Potassium 3.7 mmol/L (3.6-5.2) 05/02/17 11:12 Chloride 102 mmol/L (98-107) 05/02/17 11:12 Carbon Dioxide 23 mmol/L (22-30) 05/02/17 11:12 Anion Gap 15 (10-20) 05/02/17 11:12 BUN 24 mg/dL (9-20) H 05/02/17 11:12 Creatinine 1.0 mg/dL (0.8-1.5) 05/02/17 11:12 Est GFR ( Amer) > 60 05/02/17 11:12 Est GFR (Non-Af Amer) > 60 05/02/17 11:12 POC Glucose (mg/dL) 132 mg/dL (65-110) H 05/02/17 11:24 Random Glucose 123 mg/dL (75-110) H 05/02/17 11:12 Hemoglobin A1c 5.8 % (4.2-6.5) 05/01/17 07:30 Calcium 8.7 mg/dl (8.6-10.4) 05/02/17 11:12 Total Bilirubin 0.8 mg/dL (0.2-1.3) 05/02/17 11:12 AST 27 U/L (17-59) 05/02/17 11:12 ALT 35 U/L (21-72) 05/02/17 11:12 Alkaline Phosphatase 60 U/L (38-126) 05/02/17 11:12 Total Creatine Kinase 235 U/L (55-170) H 05/01/17 22:17 CK-MB (Mass) 3.22 ng/mL (0.0-3.38) 05/01/17 22:17 Troponin I 0.0430 ng/mL (0.00-0.120) 05/01/17 22:17 NT-Pro-B Natriuret Pep 3320 pg/mL (0-900) H 05/01/17 08:28 Total Protein 7.1 g/dL (6.3-8.3) 05/02/17 11:12 Albumin 3.7 g/dL (3.5-5.0) 05/02/17 11:12 Globulin 3.4 gm/dL (2.2-3.9) 05/02/17 11:12 Albumin/Globulin Ratio 1.1 (1.0-2.1) 05/02/17 11:12 Triglycerides 153 mg/dL (0-149) H 05/01/17 02:45 Cholesterol 199 mg/dL (0-199) 05/01/17 02:45 LDL Cholesterol Direct 150 mg/dL (0-129) H 05/01/17 02:45 HDL Cholesterol 41 mg/dL (30-70) 05/01/17 02:45 Free T4 1.24 ng/dL (0.78-2.19) 05/02/17 11:12 Thyroxine (T4) 10.2 ug/dL (5.5-11.0) 05/02/17 11:12 TSH 3rd Generation 0.16 mIU/L (0.46-4.68) L 05/02/17 11:12 Alcohol, Quantitative 25 mg/dl (0-10) H 05/01/17 02:45 Attending/Attestation - Attestation I have personally seen and examined this patient.: Yes I have fully participated in the care of the patient.: Yes I have reviewed all pertinent clinical information, including history, physical exam and plan: Yes Notes (Text): 05/02/17 17:13 Patient was seen and examined shortly after resident. Exam, assessment and plan and discharge instructions were gone over with the resident. Homero Kumar D.O.
[2017-05-02 11:24] LABS: HEMOGLOBIN 15.5 g/dL (12.0-18.0); LYMPH # 1.4 K/uL (1.0-4.3); LYMPH % 24.2 % (20.0-40.0); MEAN PLATELET VOLUME 8.4 fL (7.2-11.7); MONO # 0.6 K/uL (0.0-0.8); NEUT # 3.1 K/uL (1.8-7.0); RED CELL DISTRIBUTION WIDTH 14.2 % (11.5-14.5); WHITE BLOOD COUNT 5.8 K/uL (4.8-10.8)
[2017-05-02 11:30] LABS: BASO % 0.8 % (0.0-2.0); EOS # 0.7 K/uL (0.0-0.7); EOS % 11.3 % (0.0-4.0); MEAN CELL VOLUME 93.4 fL (80.0-94.0); MEAN CORPUSCULAR HEMOGLOBIN 32.2 pg (27.0-31.0); MEAN CORPUSCULAR HGB CONC 34.4 g/dL (33.0-37.0); MONO % 10.5 % (0.0-10.0); NEUT % 53.2 % (50.0-75.0); NRBC % 0.1 % (0.0-2.0); RBC 4.83 Mil/uL (4.40-5.90)
[2017-05-02 11:54] LABS: ALB/GLOB RATIO 1.1 (1.0-2.1); ALBUMIN 3.7 g/dL (3.5-5.0); ALT/SGPT 35 U/L (21-72); AST/SGOT 27 U/L (17-59); BLOOD UREA NITROGEN 24 mg/dL (9-20); CALCIUM 8.7 mg/dl (8.6-10.4); GFR AFRICAN-AMERICAN > 60; GFR NON-AFRICAN AMERICAN > 60
--- NOTE | 2017-05-02 12:00 | CARD ---
APPROVED REPORT EKG Measurement Heart [id number] <Conclusion> Normal sinus rhythm Possible Left atrial enlargement Left ventricular hypertrophy Abnormal ECG
[2017-05-02 12:16] LABS: T4 10.2 ug/dL (5.5-11.0)
[2017-05-02 13:16] VITALS: BP 131/80; TEMP 97.6; O2SAT 94
[2017-05-02 14:22] VITALS: PULSE 67
--- NOTE | 2017-05-02 22:15 | PN ---
DATE: ENDOCRINOLOGY FOLLOWUP LOCATIONS: In the room 560. SUBJECTIVE: This is a 51-year-old male with recent admission for chest pain and supervening tachycardia and palpitations and has been evaluated to have early hyperthyroidism as noted thereof. He has been started on a low-dose medical therapy and is very well tolerated a this time. LABORATORY DATA: His latest chemistries showed the thyroid studies showed a T4 of 10.2 with the TSH of 0.16 as noted. His chemistry showed the BUN of 24, sodium 137, potassium 3.7, chloride 102, CO2 of 23, glucose 123, and creatinine 1.0. ASSESSMENT AND PLAN: So at this time, we will continue the low-dose medical therapy for outpatient thyroid management, using Tapazole at 10 mg once daily as ordered. We would also recommend beta-blockers as given in the hospital. We would recommend that he follows with the clinic for repeat thyroid studies in a month for dose adjustments of his medications accordingly. Haylee Hodges MD
[2017-05-06 19:01] LABS: TSI 92 % baseline (<140)
== END 2017-05-02 13:30 | disposition home or self-care (01) ==
LOC: C.ER 01:15 → C.9E 04:55 → C.5S 12:37
PROVIDERS: ADMIT Internal Medicine; ATTEND Internal Medicine
DX: I16.0 Hypertensive urgency (principal); E11.9 Type 2 diabetes mellitus without complications; F17.210 Nicotine dependence, cigarettes, uncomplicated; I11.0 Hypertensive heart disease with heart failure; I25.10 Atherosclerotic heart disease of native coronary artery without angina pectoris; I27.20 Pulmonary hypertension, unspecified; I35.2 Nonrheumatic aortic (valve) stenosis with insufficiency; I50.30 Unspecified diastolic (congestive) heart failure; I70.0 Atherosclerosis of aorta; Z79.82 Long term (current) use of aspirin; Z82.3 Family history of stroke; Z91.14 Patient's other noncompliance with medication regimen; Z79.899 Other long term (current) drug therapy; E05.90 Thyrotoxicosis, unspecified without thyrotoxic crisis or storm; E06.3 Autoimmune thyroiditis; E78.00 Pure hypercholesterolemia, unspecified; F43.10 Post-traumatic stress disorder, unspecified
CPT/HCPCS: 36415; 71045; 80053; 80061; 80320; 80324; 80345; 80346; 80349; 80353; 80358; 80361; 82948; 83036; 83880; 83992; 84436; 84439; 84443; 84445; 84484; 85025; 85610; 86376; 86800; 93005; 93306; 96372; 96374; 96375; 99285; G0378; J0360; J1644; J1940; J2405

== ENCOUNTER 2017-06-05 14:31 | Emergency (ER) | payer MEDICAID ==
[2017-06-05] MEDS ORDERED: Naproxen 550 mg Tab PO STA (16:35)
[2017-06-05] MEDS ORDERED: Naproxen 550 mg Tab PO ONE (16:51)
--- NOTE | 2017-06-05 17:11 | C.PDOC ---
History Of Present Illness 51-year-old male presents to the emergency department with complaints of right foot pain (on dorsal aspect) since yesterday. He denies falls or injuries, calf tenderness, shortness of breath, fever, chest pain. Patient has Hx of hypertension and diabetes and admits he has been non-complaint his medications ( given at discharge approx 1 month ago - admitted for HTN emergency). Time Seen by Provider: 06/05/17 16:20 Chief Complaint (Nursing): Lower Extremity Problem/Injury History Per: Patient History/Exam Limitations: no limitations Current Symptoms Are (Timing): Still Present Severity: Moderate Past Medical History Reviewed: Historical Data, Nursing Documentation, Vital Signs Vital Signs: Last Vital Signs Temp 98.1 F 06/05/17 17:26 Pulse 69 06/05/17 17:26 Resp 18 06/05/17 17:26 BP 174/95 H 06/05/17 17:26 Pulse Ox 96 06/05/17 18:14 - Medical History PMH: Diabetes, HTN, Hypercholesterolemia Family History: States: No Known Family Hx - Social History Hx Tobacco Use: Yes Hx Alcohol Use: No Hx Substance Use: No - Immunization History Hx Tetanus Toxoid Vaccination: No Hx Influenza Vaccination: No Hx Pneumococcal Vaccination: No Review Of Systems Except As Marked, All Systems Reviewed And Found Negative. Constitutional: Negative for: Fever, Chills Cardiovascular: Negative for: Chest Pain Respiratory: Negative for: Cough, Shortness of Breath Gastrointestinal: Negative for: Vomiting, Abdominal Pain Musculoskeletal: Positive for: Foot Pain Skin: Negative for: Rash Neurological: Negative for: Weakness, Numbness Physical Exam - Physical Exam Appears: Well, Non-toxic, In Acute Distress (in mild pain, bizarre affect) Skin: Normal Color, Warm, Dry, No Rash Head: Normacephalic Eye(s): bilateral: Normal Inspection Oral Mucosa: Moist Chest: Symmetrical Cardiovascular: Rhythm Regular Respiratory: Normal Breath Sounds, No Rales, No Rhonchi, No Wheezing Extremity: No Calf Tenderness, Capillary Refill (< 2 sec all digits), No Deformity, Other (right foot with mild swelling atdorsum, likely a ganglion cyst , no warmth to touch, no erythema) Pulses: Left Dorsalis Pedis: Normal, Right Dorsalis Pedis: Normal Neurological/Psych: Oriented x3, Other (occasional involuntary lip smacking and mouth movements. ?Tardive dyskinesia.) ED Course And Treatment O2 Sat by Pulse Oximetry: 96 (RA) Pulse Ox Interpretation: Normal - Other Rad right foot Xray X-Ray: Interpreted by Me, Viewed By Me (no fx/dislocation, no foreign body) Progress Note: Xray of foot ordered and reviewed. Accucheck WNL. Patient given PO Naprosyn, Coreg and Zestril (prior records reviewed in order to obtain HTN meds). Reevaluation Time: 18:05 Reassessment Condition: Improved (On reassessment, patient's pain has improved and he is resting comfortably. He is able to ambulate normally in ED, and vitals have improved. He was instructed to follow up with podiatery within 1 week. Rxs for Naprosyn and BP meds given, and patient counseled on the importance of compliance with his meds. He understands he should return to ED if symptoms worsen.) Disposition Counseled Patient/Family Regarding: Studies Performed, Diagnosis, Need For Followup, Rx Given - Disposition Referrals: Podiatry Clinic [Outside] Disposition: HOME/ ROUTINE Disposition Time: 18:05 Condition: STABLE Additional Instructions: FOLLOW UP WITH PODIATRY WITHIN 1 WEEK USE PAIN MEDICATION NEEDED RETURN TO ER IF SYMPTOMS WORSEN Prescriptions: Carvedilol [Coreg] 3.125 mg PO BID #60 tab Carvedilol [Coreg] 6.25 mg PO BID #60 tab Lisinopril [Zestril] 10 mg PO DAILY #30 tablet Naproxen 375 mg PO BID PRN #20 tablet PRN Reason: pain Instructions: Ganglion Cyst (DC) Forms: [employer] (Icelandic) Print Language: CENTRAL AFRICAN - POA Present On Arrival: None - Clinical Impression Clinical Impression: Uncontrolled hypertension, Foot pain, right, Ganglion cyst of foot - Scribe Statement The provider has reviewed the documentation as recorded by the Scribe (Tiffani Carson) All medical record entries made by the Scribe were at my direction and personally dictated by me. I have reviewed the chart and agree that the record accurately reflects my personal performance of the history, physical exam, medical decision making, and the department course for this patient. I have also personally directed, reviewed, and agree with the discharge instructions and disposition.
[2017-06-05 17:27] VITALS: BP 174/95; PULSE 69; RESP 18; TEMP 98.1
[2017-06-05 18:12] VITALS: O2SAT 96
--- NOTE | 2017-06-06 08:29 | RAD ---
PROCEDURE: Right Foot Radiographs. HISTORY: RIGHT FOOT PAIN COMPARISON: None. FINDINGS: BONES: No acute fracture. JOINTS: Unremarkable. SOFT TISSUES: Normal. OTHER FINDINGS: Achilles enthesophyte. Inferior plantar calcaneal spur. IMPRESSION: No demonstrated fracture or dislocation.
== END 2017-06-05 18:51 | disposition home or self-care (01) ==
LOC: C.ER 14:31
DX: M67.471 Ganglion, right ankle and foot (principal); I10 Essential (primary) hypertension; M79.671 Pain in right foot; Z91.14 Patient's other noncompliance with medication regimen

== ENCOUNTER 2017-10-08 19:26 | Emergency (ER) | payer MEDICAID, OTHER ==
[2017-10-08 19:43] VITALS: RESP 16
[2017-10-08] MEDS ORDERED: Albuterol-Ipratrop 3 mg / 0.5 (3 ml) UD IH STA (20:43)
[2017-10-08] MEDS ORDERED: Albuterol-Ipratrop 3 mg / 0.5 (3 ml) UD ONE (21:43)
[2017-10-08 22:15] VITALS: BP 166/86; PULSE 68; TEMP 98.2
[2017-10-08 22:17] VITALS: O2SAT 97
--- NOTE | 2017-10-08 22:17 | C.PDOC ---
History Of Present Illness Pt states that he felt some shortness of breath after smoking meth. Time Seen by Provider: 10/08/17 20:32 Chief Complaint (Nursing): Substance Abuse History Per: Patient Onset/Duration Of Symptoms: Hrs Current Symptoms Are (Timing): Still Present Suicide/Self Injury Attempted (Context): None Modifying Factor(s): Alcohol, Other (Meth) Severity: Moderate Associated Symptoms: denies: Suicidal Thoughts, Suicidal Plan Additional History Per: Prior Records Past Medical History Reviewed: Historical Data, Nursing Documentation, Vital Signs Vital Signs: Last Vital Signs Temp 98.4 F 10/08/17 20:36 Pulse 85 10/08/17 20:36 Resp 16 10/08/17 20:36 BP 161/84 H 10/08/17 20:36 Pulse Ox 97 10/08/17 20:36 - Medical History PMH: Diabetes, HTN, Hypercholesterolemia Family History: States: Unknown Family Hx - Social History Hx Tobacco Use: Yes Hx Alcohol Use: Yes Hx Substance Use: Yes - Immunization History Hx Tetanus Toxoid Vaccination: No Hx Influenza Vaccination: No Hx Pneumococcal Vaccination: No Review Of Systems Cardiovascular: Negative for: Chest Pain Respiratory: Negative for: Hemoptysis Gastrointestinal: Negative for: Vomiting, Abdominal Pain Musculoskeletal: Negative for: Neck Pain, Back Pain Neurological: Negative for: Weakness, Numbness, Seizures, Headache Physical Exam - Physical Exam Appears: Non-toxic, No Acute Distress Skin: Normal Color, Warm, Dry Head: Atraumatic Eye(s): bilateral: PERRL, EOMI Neck: Normal ROM, Supple Cardiovascular: Rhythm Regular Respiratory: No Accessory Muscle Use, Other (mild rhonchi) Gastrointestinal/Abdominal: Soft, No Tenderness Extremity: Normal ROM, No Pedal Edema, No Calf Tenderness Neurological/Psych: Oriented x3, Normal Motor, Normal Sensation ED Course And Treatment O2 Sat by Pulse Oximetry: 97 Pulse Ox Interpretation: Normal Progress Note: after a Duoneb, lungs clear. Reassessment Condition: Improved Disposition Counseled Patient/Family Regarding: Diagnosis, Need For Followup, Smoking Cessation - Disposition Referrals: [facility] [Outside] Disposition: HOME/ ROUTINE Disposition Time: 22:16 Condition: IMPROVED Additional Instructions: Avoid alcohol and other drugs. Follow up in the clinic. Return to the ER if you develop chest pain, shortness of breath, worsening of symptoms or if you have any other concerns. Instructions: Drug Abuse and Drug Addiction (DC) - Clinical Impression Clinical Impression: Methamphetamine abuse
== END 2017-10-08 22:30 | disposition home or self-care (01) ==
LOC: C.ER 19:26
DX: F15.10 Other stimulant abuse, uncomplicated (principal); E11.9 Type 2 diabetes mellitus without complications; I10 Essential (primary) hypertension; F17.210 Nicotine dependence, cigarettes, uncomplicated

== ENCOUNTER 2017-12-17 23:57 | Emergency (ER) | payer MEDICAID ==
--- NOTE | 2017-12-18 00:20 | C.PDOC ---
History Of Present Illness 52 y/o male presents to the ED complaining of dizziness that started 30-40 minutes ago. Denies any associated headache, slurred speech, visual changes, weakness, nausea, or vomiting. States he had around 4-6 shots of alcohol this evening. On arrival patient is speaking in complete sentences. Of note, patient reports he only drinks socially. Also reports he did not take his blood pressure medication today. Time Seen by Provider: 12/18/17 00:19 Chief Complaint (Nursing): Dizziness/Lightheaded History Per: Patient History/Exam Limitations: no limitations Onset/Duration Of Symptoms: Mins (30) Current Symptoms Are (Timing): Still Present Associated Symptoms Preceding Syncopal Episode: No Predromal Symptoms (Sudden Onset) Seizure Or Post-ictal Symptoms: None Possible Causative Factor(s): Recent Alcohol Fall Associated With With Symptoms: No Severity: None Pain Scale Rating Of: 0 Past Medical History Reviewed: Historical Data, Nursing Documentation, Vital Signs Vital Signs: Last Vital Signs Temp 98.3 F 12/18/17 00:03 Pulse 79 12/18/17 00:03 Resp 16 12/18/17 00:03 BP 178/104 H 12/18/17 00:03 Pulse Ox 96 12/18/17 00:03 - Medical History PMH: Diabetes, HTN, Hypercholesterolemia Surgical History: No Surg Hx Family History: States: Unknown Family Hx - Social History Hx Tobacco Use: Yes Hx Alcohol Use: Yes Hx Substance Use: Yes - Immunization History Hx Tetanus Toxoid Vaccination: No Hx Influenza Vaccination: No Hx Pneumococcal Vaccination: No Review Of Systems Constitutional: Negative for: Fever Eyes: Negative for: Vision Change Cardiovascular: Negative for: Chest Pain Respiratory: Negative for: Shortness of Breath Gastrointestinal: Negative for: Nausea, Vomiting Neurological: Positive for: Dizziness. Negative for: Weakness, Numbness, Incoordination, Change in Speech, Headache Physical Exam - Physical Exam Appears: Non-toxic, No Acute Distress Skin: Warm, Dry Head: Normacephalic Eye(s): bilateral: Normal Inspection (no nystagmus), PERRL, EOMI Oral Mucosa: Moist Neck: Trachea Midline, Supple Chest: Symmetrical Cardiovascular: Rhythm Regular Respiratory: No Rales, No Rhonchi, No Wheezing Gastrointestinal/Abdominal: Soft, No Tenderness, No Distention Extremity: Bilateral: Atraumatic, Normal Color And Temperature Pulses: Left Dorsalis Pedis: Normal, Right Dorsalis Pedis: Normal Neurological/Psych: Oriented x3, Normal Speech, Normal Cranial Nerves, Normal Motor, Normal Sensation ED Course And Treatment - Laboratory Results Result Diagrams: 12/18/17 00:34 12/18/17 00:34 ECG: Interpreted By Me, Viewed By Me ECG Rhythm: Sinus Rhythm (79) O2 Sat by Pulse Oximetry: 96 (RA) Pulse Ox Interpretation: Normal - Radiology CXR: Interpreted by Me, Viewed By Me CXR Interpretation: No: Infiltrates, Fracture, Pnemothorax - CT Scan/US CT HEAD Other Rad Studies (CT/US): Read By Radiologist CT/US Interpretation: Name:LORAINE HIGGINBOTHAM Exam Date:Dec 18, 2017 1:36:43 AM EDT. Modality Type:CT\SR. Description:CT - BRAIN WITH CORONAL AND SAGITTAL MPRS. Gender:M Laterality:Not applicable. :63 Referring Physician:Sofia Sampson). CT SCAN OF THE BRAIN WITHOUT IV CONTRAST. CLINICAL INDICATION: Dizziness. TECHNIQUE: Axial and reformatted sagittal and coronal images of the brain obtained without IV contrast administration. Normal size of the ventricles and extra-axial spaces for the patient's age. Normal white matter tracts of the supratentorial brain. Normal basal ganglia and thalami. Normal brainstem. Normal cerebellum. There is no demonstrated extra-axial, intraparenchymal, or intraventricular hemorrhage. There are no findings of an acute ischemic infarction. Normal calvarium. There is no demonstrated fracture. Normal soft tissue structures. Moderate chronic mucosal inflammatory changes of the ethmoid air cells. Normal visualized paranasal sinuses. IMPRESSION: Normal unenhanced CT scan of the brain. Moderate chronic mucosal inflammatory changes of the ethmoid air cells. Progress Note: CT Head ordered. Labs ordered and reviewed. CXR and EKG ordered and reviewed. Administered 1L of IV fluids. All results discussed with patient in detail. Reevaluation Time: 05:15 Reassessment Condition: Improved Disposition Counseled Patient/Family Regarding: Studies Performed, Diagnosis, Need For Followup - Disposition Referrals: [facility] at [facility] [Outside] [facility] [Outside] Disposition: HOME/ ROUTINE Disposition Time: 01:00 Condition: FAIR Additional Instructions: Please return if symptoms recur Instructions: Vertigo (a Type of Dizziness) Forms: [employer] (Luxembourgish) - Clinical Impression Clinical Impression: Dizziness - Scribe Statement The provider has reviewed the documentation as recorded by the Zuleyka Stringer Provider Attestation: All medical record entries made by the Zuleyka were at my direction and personally dictated by me. I have reviewed the chart and agree that the record accurately reflects my personal performance of the history, physical exam, medical decision making, and the department course for this patient. I have also personally directed, reviewed, and agree with the discharge instructions and disposition.
[2017-12-18] MEDS ORDERED: Sodium Chloride 0.9% 500 ML IV ONE ×2 (00:28→01:11)
[2017-12-18 00:51] LABS: PROTHROMBIN TIME 10.7 SECONDS (9.7-12.2)
[2017-12-18 00:51] LABS: VENOUS BLOOD GAS BASE EXCESS 3.3 mmol/L (0.0-2.0); VENOUS BLOOD GAS PCO2 48 mmHg (40-60); VENOUS BLOOD GAS PO2 40 mm/Hg (30-55); VENOUS BLOOD PH 7.39 (7.32-7.43)
[2017-12-18 00:55] LABS: ALBUMIN 4.2 g/dL (3.5-5.0); ALT/SGPT 16 U/L (21-72); AST/SGOT 18 U/L (17-59); BLOOD UREA NITROGEN 18 mg/dL (9-20); CALCIUM 8.9 mg/dl (8.6-10.4); GFR NON-AFRICAN AMERICAN 45; LIPASE 69 U/L (23-300)
[2017-12-18 00:59] LABS: ALB/GLOB RATIO 1.3 (1.0-2.1)
[2017-12-18 01:00] LABS: BASO # 0.1 K/uL (0.0-0.2); BASO % 0.9 % (0.0-2.0); EOS # 0.6 K/uL (0.0-0.7); EOS % 7.2 % (0.0-4.0); HEMOGLOBIN 15.9 g/dL (12.0-18.0); LYMPH # 1.6 K/uL (1.0-4.3); LYMPH % 20.6 % (20.0-40.0); MEAN CELL VOLUME 91.7 fL (80.0-94.0); MEAN CORPUSCULAR HEMOGLOBIN 31.2 pg (27.0-31.0); MEAN CORPUSCULAR HGB CONC 34.1 g/dL (33.0-37.0); MEAN PLATELET VOLUME 8.7 fL (7.2-11.7); MONO # 0.8 K/uL (0.0-0.8); MONO % 10.6 % (0.0-10.0); NEUT # 4.8 K/uL (1.8-7.0); NEUT % 60.7 % (50.0-75.0); NRBC % 0.1 % (0.0-2.0); RBC 5.1 Mil/uL (4.40-5.90); RED CELL DISTRIBUTION WIDTH 13.4 % (11.5-14.5); WHITE BLOOD COUNT 7.8 K/uL (4.8-10.8)
[2017-12-18 05:16] VITALS: O2SAT 96
[2017-12-18 05:17] VITALS: BP 157/96; PULSE 82; RESP 18; TEMP 98.2
--- NOTE | 2017-12-18 07:49 | CT ---
Date of service: 12/18/2017 PROCEDURE: CT HEAD WITHOUT CONTRAST. HISTORY: Headache. Evaluate for bleed. COMPARISON: None available. TECHNIQUE: Axial computed tomography images were obtained through the head/brain without intravenous contrast. Radiation dose: Total exam DLP = 1086 mGy-cm. This CT exam was performed using one or more of the following dose reduction techniques: Automated exposure control, adjustment of the mA and/or kV according to patient size, and/or use of iterative reconstruction technique. FINDINGS: HEMORRHAGE: No intracranial hemorrhage. BRAIN: No mass effect or edema. Scattered focal lucencies in the subcortical and periventricular white matter suggestive for chronic microvascular ischemic change. Chronic lacunar infarcts in the bilateral basal ganglia as well as the bilateral caudate head. VENTRICLES: Unremarkable. No hydrocephalus. CALVARIUM: Unremarkable. PARANASAL SINUSES: Prominent mucosal thickening of the ethmoid air cells. MASTOID AIR CELLS: Unremarkable as visualized. No inflammatory changes. OTHER FINDINGS: Intracranial arterial calcifications. IMPRESSION: No acute intracranial abnormality. Chronic microvascular ischemic change. Bilateral caudate head and basal ganglia lacunar infarcts. Sinus mucosal disease. If symptoms persists, consider correlation with MRI. These findings were preliminarily reported at 1:59 a.m. on 12/18/[address] Elier Mondragon from [facility].
--- NOTE | 2017-12-18 15:28 | RAD ---
Date of service: 12/18/2017 PROCEDURE: CHEST RADIOGRAPH, 1 VIEW HISTORY: SOB COMPARISON: 05/01/2017 FINDINGS: LUNGS: Clear. PLEURA: No pneumothorax or pleural fluid seen. CARDIOVASCULAR: Normal. OSSEOUS STRUCTURES: No significant abnormalities. VISUALIZED UPPER ABDOMEN: Normal. OTHER FINDINGS: None. IMPRESSION: No active disease.
--- NOTE | 2017-12-19 16:21 | CARD ---
APPROVED REPORT Date of service: 12/18/2017 EKG Measurement Heart [id number] <Conclusion> Normal sinus rhythm Possible Left atrial enlargement Borderline ECG
== END 2017-12-18 05:33 | disposition home or self-care (01) ==
LOC: C.ER 23:57
DX: R42 Dizziness and giddiness (principal); I10 Essential (primary) hypertension; E11.9 Type 2 diabetes mellitus without complications; E78.00 Pure hypercholesterolemia, unspecified; F17.210 Nicotine dependence, cigarettes, uncomplicated
CPT/HCPCS: 70450; 71045; 80053; 80320; 82803; 82948; 83690; 83735; 85025; 85610; 85730; 93005; 96360; 99285; J7040

== ENCOUNTER 2017-12-30 04:26 | Emergency (ER) | payer MEDICAID ==
--- NOTE | 2017-12-30 04:50 | C.PDOC ---
History Of Present Illness 52 year old male presents to the emergency department with complaints of headache. Patient was seen here on 11-18-17 with similar complaints where her had a full work-up with a negative head CT. At the time, the patient was given medic ations for his blood pressure, and his blood pressure decreased. However, following that visit the patient became non-compliant with his medications and continued to drink alcohol. Today, the patient was drinking again and starting having a headache. He denies nausea, vomiting, chest pain, numbness, tingling to the extremities, or speech problems. Time Seen by Provider: 12/30/17 04:48 Chief Complaint (Nursing): High Blood Pressure History Per: Patient History/Exam Limitations: no limitations Onset/Duration Of Symptoms: Hrs Current Symptoms Are (Timing): Still Present Associated Symptoms: Headache. denies: Chest Pain, Focal Weakness, Other (nausea, vomiting, speech problems) Exacerbating Factor(s): Pos: Recently Missed Doses Of Medication Past Medical History Reviewed: Historical Data, Nursing Documentation, Vital Signs Vital Signs: Last Vital Signs Temp 98.3 F 12/30/17 04:38 Pulse 79 12/30/17 04:38 Resp 20 12/30/17 04:38 BP 213/123 H 12/30/17 04:38 Pulse Ox 96 12/30/17 04:38 - Medical History PMH: Diabetes, HTN, Hypercholesterolemia Surgical History: No Surg Hx Family History: States: No Known Family Hx - Social History Hx Tobacco Use: Yes Hx Alcohol Use: Yes Hx Substance Use: No - Immunization History Hx Tetanus Toxoid Vaccination: No Hx Influenza Vaccination: No Hx Pneumococcal Vaccination: No Review Of Systems Except As Marked, All Systems Reviewed And Found Negative. Cardiovascular: Negative for: Chest Pain Gastrointestinal: Negative for: Nausea, Vomiting Neurological: Positive for: Headache. Negative for: Weakness, Numbness, Change in Speech Physical Exam - Physical Exam Appears: Non-toxic, No Acute Distress Skin: Warm, Dry Head: Atraumatic, Normacephalic Eye(s): bilateral: Normal Inspection, PERRL, EOMI Oral Mucosa: Moist, Other (alcohol on breath) Neck: Normal, Supple Chest: Symmetrical Cardiovascular: Rhythm Regular, No Murmur Respiratory: No Rales, No Rhonchi, No Wheezing Extremity: Normal ROM (all extremities) Neurological/Psych: Oriented x3, Normal Speech, Normal Cognition, Other (no focal deficits) ED Course And Treatment - Laboratory Results Result Diagrams: 12/30/17 05:15 12/30/17 06:22 O2 Sat by Pulse Oximetry: 96 (RA) Pulse Ox Interpretation: Normal Progress Note: Plan: Alcohol Serum. CMP. Drug Screen. CBC. Trandate 20mg IV. On re-evaluation, patient feels better, no longer c/o headache, no neuro deficit, denies chest pain/SOB. Disposition - Disposition Referrals: [facility] at [facility] [Outside] Disposition: HOME/ ROUTINE Disposition Time: 06:49 Condition: IMPROVED Additional Instructions: Follow up with PMD/ Clinic within 1-2 days. You must to take your blood pressure medication every day. Return to ED if feel worse. Prescriptions: hydroCHLOROthiazide [Hydrodiuril] 25 mg PO DAILY #30 tab Instructions: Amphetamine, Drug Abuse and Drug Addiction (DC), High Blood Pressure in Adults Forms: [employer] (Polish) Print Language: KINYARWANDA - Clinical Impression Clinical Impression: Uncontrolled hypertension, Methamphetamine abuse, Headache - PA / AUTO LOCATOR / Resident Statement MD/DO has reviewed & agrees with the documentation as recorded. - Scribe Statement The provider has reviewed the documentation as recorded by the Scribe (Dylan Duval) All medical record entries made by the Scribe were at my direction and personally dictated by me. I have reviewed the chart and agree that the record accurately reflects my personal performance of the history, physical exam, medical decision making, and the department course for this patient. I have also personally directed, reviewed, and agree with the discharge instructions and disposition.
[2017-12-30 04:51] VITALS: RESP 20; O2SAT 96
[2017-12-30] MEDS ORDERED: Labetalol 25mg/5ml Syringe IV STA (04:52)
[2017-12-30 05:20] LABS: BASO # 0.1 K/uL (0.0-0.2); BASO % 0.9 % (0.0-2.0); EOS # 0.5 K/uL (0.0-0.7); EOS % 5.8 % (0.0-4.0); LYMPH # 0.9 K/uL (1.0-4.3); LYMPH % 11.6 % (20.0-40.0); MEAN CELL VOLUME 92.6 fL (80.0-94.0); MEAN CORPUSCULAR HEMOGLOBIN 31.2 pg (27.0-31.0); MEAN CORPUSCULAR HGB CONC 33.7 g/dL (33.0-37.0); MEAN PLATELET VOLUME 7.9 fL (7.2-11.7); MONO % 12.1 % (0.0-10.0); NEUT # 5.6 K/uL (1.8-7.0); NEUT % 69.6 % (50.0-75.0); NRBC % 0.1 % (0.0-2.0); RBC 5.12 Mil/uL (4.40-5.90); RED CELL DISTRIBUTION WIDTH 13.4 % (11.5-14.5); WHITE BLOOD COUNT 8.1 K/uL (4.8-10.8)
[2017-12-30] MEDS ORDERED: Labetalol 5mg/ml (4ml) ONE (05:29)
[2017-12-30 05:44] LABS: BARBITURATES, UR NEGATIVE (NEGATIVE); BENZODIAZEPINES, UR NEGATIVE (NEGATIVE); OPIATES, UR NEGATIVE (NEGATIVE); PHENCYCLIDINE, UR NEGATIVE (NEGATIVE)
[2017-12-30 05:51] VITALS: BP 169/109; PULSE 89; TEMP 98
[2017-12-30 06:38] LABS: ALB/GLOB RATIO 1.2 (1.0-2.1); ALT/SGPT 18 U/L (21-72); AST/SGOT 12 U/L (17-59); BLOOD UREA NITROGEN 18 mg/dL (9-20); CALCIUM 8.9 mg/dl (8.6-10.4); GFR NON-AFRICAN AMERICAN > 60
== END 2017-12-30 07:06 | disposition home or self-care (01) ==
LOC: C.ER 04:26
DX: I10 Essential (primary) hypertension (principal); R51 Headache; F15.10 Other stimulant abuse, uncomplicated; E11.9 Type 2 diabetes mellitus without complications; E78.00 Pure hypercholesterolemia, unspecified; F17.210 Nicotine dependence, cigarettes, uncomplicated